=== PATIENT | male | born 2000 | race Caucasian/White ===

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

== ENCOUNTER 2025-04-02 00:39 | Emergency (ER) | payer OTHER ==
[~2025-04-02] VITALS: Ht 188 cm; Wt 98.6 kg
[~2025-04-02 00:39] MED LIST changes: +CIPRO500 MG PO; +FLOMAX0.4 MG PO; +ONDANSETRON ODT8 MG PO; +PERCOCET 5-3251 EACH PO
[2025-04-02] MEDS ORDERED: LACTATED RINGER'S 1,000 ML IV ONE (01:30)
[2025-04-02] MEDS ORDERED: FAMOTIDINE 20 MG/ 2 ML VIAL IV ONE (01:30)
[2025-04-02 01:36] LABS: BASOPHILS 0.9 % (0.2-1.2); EOSINOPHILS 1.5 % (0.8-7.0); LYMPHOCYTES 22.2 % (21.8-53.1); MCH 30.2 PG (25.7-32.2); MCHC 34.5 g/dL (32.3-36.5); MCV 87.7 fL (79.0-92.2); MONOCYTES 12.2 % (5.3-12.2); NEUTROPHILS 63.1 % (34.0-67.9); RBC 5.59 M/uL (4.63-6.08)
[2025-04-02 01:50] LABS: CORONAVIRUS COVID-19 AG NEGATIVE (NEGATIVE)
[2025-04-02 01:59] LABS: ALT (SGPT) 35.0 U/L (14-59); AST (SGOT) 19.0 U/L (15-37); GLOMERULAR FILTRATION RATE,EST 81.0 mL/min (>60); PROTEIN, TOTAL 6.7 g/dL (6.4-8.2); UREA NITROGEN 11.0 mg/dL (7-18)
[2025-04-02] MEDS ORDERED: ONDANSETRON 4 MG HOME.PACK SL ONE (02:30)
[2025-04-02 03:03] VITALS: BP 136/75
== END 2025-04-02 03:03 | disposition home or self-care (01) ==
LOC: ED 00:39
PROVIDERS: Internal Medicine
DX: J06.9 Acute upper respiratory infection, unspecified (principal); B97.89 Other viral agents as the cause of diseases classified elsewhere; J45.909 Unspecified asthma, uncomplicated; Z79.899 Other long term (current) drug therapy
CPT/HCPCS: 36415; 80053; 85025; 87502; 96374; 96375; 99283-25; A9270; J2405; J7121; U0002